=== PATIENT | male | born 2005 | race Caucasian/White ===

== ENCOUNTER 2023-08-26 12:07 | Outpatient (AMB) | payer OTHER, SELFPAY ==
--- NOTE | 2023-08-26 12:09 | A.OFFPC_ITS ---
Vital Signs 08/26/23 12:18 Height 5 ft 8 in Weight 176 lb BMI 26.8 BP 108/64 Blood Pressure Location Rt brachial Position Sitting Respiration 13 Pulse 76 Pulse Source Pulse Oximeter Pulse Oximetry (%) 98 Oxygen Delivery Method Room Air Intake Visit Reasons: New patient-requesting physical Intake Note: Patient is here as a new patient establishing care. [facility] [place], [place]. Patient would like to have a form filled out for school, given to [facility] in the office. Patient is accompanied by his mother- Megan. Patient would like to request a few referrals for detective automobile section for educational purposes, ENT for deviated septum, a engine head repairer for continuation of care, and estimator jewelry for lactose intolerance and reflux. Patient would like to discuss possible circumcision as the foreskin is bothersome. Construction Materials Tester Required: No Accompanied by: Self / Same As Patient Allergies No Known Allergies Allergy (Verified 08/26/23 12:26) Tobacco use date assessed: 08/26/23 Dental Screening Dental Screen Date: 08/26/23 Did you have a dental visit in the last 12 months?: Yes Did you have a dental problem in the last 6 months where you did not have access to dental care?: No Was dental information given to patient?: Patient has dentist HPI New patient-requesting physical HPI Details New patient Prior PCP:?Romeo Gonzalez in [facility] Last office visit/CPE: 1 year Acute issue(s): PMHx: Acne, Eczema, lactose intolerance, GERD, deviated nasal septum, Anxiety SurgHx: None FHx: Mom: Eczema, Anxiety. Dad: Stroke and seizure. SocHx: Nonsmoker. EtOH none. No drugs. 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 1. Little interest or pleasure in doing things: not at all 2. Feeling down, depressed, or hopeless: not at all 3. Trouble falling or staying asleep, or sleeping too much: several days 4. Feeling tired or having little energy: several days 5. Poor appetite or overeating: several days 6. Feeling bad about yourself - or that you are a failure or have let yourself or your family down: not at all 7. Trouble concentrating on things, such as reading the newspaper or watching television: not at all 8. Moving or speaking so slowly that other people could have noticed. Or the opposite - being so fidgety or restless that you have been moving around a lot more than usual: not at all 9. Thoughts that you would be better off or of hurting yourself in some way: not at all Total score: 3 Depression Screening Interpretation: Negative Depression Screening Done: Yes 92536 - PHQ-9 Billing: Yes Source: Developed by Drs. Ruben Padron, Jackie Urena, Aniket Kennedy and colleagues, with an educational ebony from [employer]. Thrive Questionnaire Date Thrive assessed: 08/26/23 I am a: Patient What is your living situation today?: I have a steady place to live Within the past 12 months, did the food you bought not last and you didn't have the money to get more?: Never true Within the past 12 months, did you worry whether your food would run out before you got money to buy more?: Never true Do you have trouble paying for medicines?: No Do you have trouble getting transportation to medical appointments?: No Do you have trouble paying your heating and electricity bill?: No Do you have trouble taking care of your child, family member or friend?: No Do you have trouble with day-to-day activities such as bathing, preparing meals, shopping, managing finances, etc.?: No Are you currently unemployed and looking for a job?: Yes Are you interested in more education?: Yes Please select the resources that you would like help with: Job search/training Currently or been in a relationship where the following occur: no concerns reported AUDIT C Alcohol Use Questionnaire (AUDIT-C) 1. How often do you have a drink containing alcohol?: Never 3. How often do you have six or more drinks on one occasion?: Never Total Score: 0 JEFFERY-7 AMB Questionnaire JEFFERY-7 Date JEFFERY - 7 assessed: 08/26/23 Feeling nervous, anxious, or on edge: 0 = Not at all Not being able to stop or control worryin = Not at all Worrying too much about different things: 0 = Not at all Trouble relaxin = Not at all Being so restless that it is hard to sit still: 0 = Not at all Becoming easily annoyed or irritable: 0 = Not at all Feeling afraid as if something awful might happen: 0 = Not at all Total JEFFERY-7 score (0-4 normal; 5-9 mild; 10-14 moderate; 15-21 severe): 0 Source: Developed by Drs. Ruben Padron, Jackie Urena, Aniket Kennedy and colleagues, with an educational ebony from [employer]. JEFFERY-7 Assessment Billing JEFFERY-7 Assessment Tool: JEFFERY-7 Assessment 21878 Review of Systems Const Denies chills, Denies fatigue, Denies fever(s), Denies headache(s) and Denies weakness ENT Denies dizziness and Denies headache(s) Card Denies chest pain, Denies lightheadedness, Denies dyspnea and Denies other (Palpitations) Resp Denies cough, Denies dyspnea, Denies wheezing and Denies other ( shortness of breath) Musc Denies numbness and Denies tingling Neuro Denies dizziness, Denies headache(s), Denies numbness, Denies tingling, Denies paresthesias and Denies weakness Psych Denies anxiety and Denies depression Endo Denies fatigue Aller/Immun Denies wheezing Physical exam (Primary Care) Vital Signs: Last Vital Signs Pulse 76 08/26/23 12:18 Resp 13 08/26/23 12:18 BP 108/64 08/26/23 12:18 Pulse Ox 98 08/26/23 12:18 Oxygen Delivery Method Room Air 08/26/23 12:18 BMI result Body Mass Index 26.8 Tobacco/Smoking Status: Tobacco use Status Tobacco use date assessed 08/26/23 08/26/23 12:32 Patient Tobacco Use Status Never used Tobacco 08/26/23 12:32 e-Cigarette/Vaping Use Never Used 08/26/23 12:32 PHQ-9: PHQ-9 Score PHQ-9: Total score 3 08/26/23 12:34 Depression Screening Interpretation: Negative Thrive Assessment: Date of Thrive Assessment Date Thrive assessed 08/26/23 08/26/23 12:34 Currently or been in a relationship where the following occur: no concerns reported Const General: no acute distress and well developed Nutritional Appearance: well nourished Orientation/consciousness: patient oriented x3 [facility] Head: Yes normocephalic and Yes atraumatic Eyes General: appearance normal, both eyes and all related structures Pupils: Equal, round and reactive pupils present EOM: EOMs intact bilaterally Resp Effort & Inspection: normal respiratory effort Auscultation: clear to auscultation bilaterally Cardio Rate: regular rate Rhythm: regular rhythm Heart sounds: S1 normal heart sound present, S2 normal heart sound present, no gallops, no murmurs and no rubs Neuro General: patient oriented x3 and gait normal Cranial nerves: Yes Equal, round and reactive pupils present Psych Affect: normal affect Assessment and Plan Assessment & Plan (1) Acne: Code(s): L70.9 - Acne, unspecified Plan: Referred?at?patient?request?to?Dermatology (2) Balanitis: Code(s): N48.1 - Balanitis Plan: Trial?clotrimazole Referred?to?Urology (3) Overweight (BMI 25.0-29.9): Code(s): E66.3 - Overweight Plan: Patient?is?trying?to?get?into?the?air?force?in?exceed?air?force?recommended?weig ht?limit Requests?referral?to?nutrition-referral?made (4) GERD (gastroesophageal reflux disease): Code(s): K21.9 - Gastro-esophageal reflux disease without esophagitis Plan: Trial?omeprazole Referred?to?Gastroenterology (5) Deviated nasal septum: Code(s): J34.2 - Deviated nasal septum Plan: Referred?to?ENT (6) Eczema: Code(s): L30.9 - Dermatitis, unspecified Plan: Use?moisturizing?creams?throughout?the?day?and?can?use?hydrocortisone?b.i.d.?whe n?flare?ups?occur (7) Lactose intolerance: Code(s): E73.9 - Lactose intolerance, unspecified Plan: Trial?lactatase Orders: Orders Comprehensive [place]. Panel Fast Today Z00.00 - Encounter for general adult medical examination without abnormal findings TSH reflex Free T4 Today Z00.00 - Encounter for general adult medical examination without abnormal findings Complete Blood Count Auto Diff Today Z00.00 - Encounter for general adult medical examination without abnormal findings Lipid Panel Today Z00.00 - Encounter for general adult medical examination without abnormal findings Microalbumin, Random (w Creat) Today I10 - Essential (primary) hypertension UA and rflx microscopic Today Z00.00 - Encounter for general adult medical examination without abnormal findings Vitamin B12 and Folate Today E53.8 - Deficiency of other specified B group vitamins Referrals Dermatology Referral L70.9 - Acne, unspecified Urology Referral T81.9XXA - Unspecified complication of procedure, initial encounter Ear/Nose/Throat Referral J34.2 - Deviated nasal septum Gastroenterology Referral E73.9 - Lactose intolerance, unspecified, K21.9 - Gastro-esophageal reflux disease without esophagitis Crew Team Member Nutrition Referral E66.3 - Overweight Medications: New lactase administer with meals and/or snacks 4,500 units PO QID 120 tabs 2RF 30 days omeprazole 20 mg PO DAILY 30 caps 2RF 30 days clotrimazole 1% 1 appl topical BID 45 grams 0RF 2 weeks Coding Level of Care Code New Pt Level 4 (91933) Diagnoses Acne L70.9 Balanitis N48.1 Overweight (BMI 25.0-29.9) E66.3 GERD (gastroesophageal reflux disease) K21.9 Deviated nasal septum J34.2 Eczema L30.9 Lactose intolerance E73.9 Additional Codes JEFFERY-7 Assessment Billing - JEFFERY-7 Assessment Tool: JEFFERY-7 Assessment 64079 ([id number])
[2023-08-26 12:18] VITALS: BP 108/64; PULSE 76; RESP 13; O2SAT 98; BMI 26.8
== END 2023-08-26 13:03 | disposition home or self-care (01) ==
PROVIDERS: PCP Family Medicine; Visit Provider Family Medicine
DX: L70.9 Acne, unspecified (principal); N48.1 Balanitis; E66.3 Overweight; K21.9 Gastro-esophageal reflux disease without esophagitis; J34.2 Deviated nasal septum; L30.9 Dermatitis, unspecified; E73.9 Lactose intolerance, unspecified
CPT/HCPCS: 99204

== ENCOUNTER 2023-09-08 14:37 | Outpatient (AMB) | payer OTHER, SELFPAY ==
[2023-09-08 14:41] VITALS: BMI 27.0
--- NOTE | 2023-09-08 14:41 | A.OFFVIS_ITS ---
Intake VS Expanded 09/08/23 14:41 09/20/23 15:07 Height 5 ft 8 in 5 ft 8 in Weight 177 lb 14.609 oz 175 lb BMI 27.0 26.6 Intake Visit Reasons: Overweight/LVM Allergies No Known Allergies Allergy (Verified 08/26/23 12:26) HPI Nutrition Presentation Details Pt presents for MNT for overweight. Pt was referred by Asa Monaco MD from [facility] Pt reports having hx of lactose intolerance and high cholesterol. Pt reports he has been working on weight loss , reports having lost 30 lbs in 6 months reaching 165 lbs however in the past couple of months he has noticed gradually increasing weight Typical meal : shake with oats and fruit or oatmeal /fruit/almond milk snack yogurt/bread sandwich lettuce/tomatoes, water meals: rice/pasta/poultry/veg food frequency fruit/day: one/day fish: rarely milk: lactose free and milk ( dessert) vegetables: couple of times a week physical activity: sedentary (was participating in physical activity in the past for > 30 min/day ETOH; denies MJX-Xfqvspo-El.Jeor Equation Height 5 ft 8 in Weight 175 lb Resting Metabolic Rate 1784.01 Calculated Activity Level Mild Activity Calories Needed to Maintain Weight 2453.01 Diagnosis Nutrition problem #1 excessive energy intake As related to (etiology) #1 physical inactivity Most Recent Diabetes Results: No Data to Display [facility] Social History (Updated 08/26/23 @ 12:32 by Aniya Arroyo [facility]) Household Members: Family Housing: House Patient Tobacco Use Status: Never used Tobacco e-Cigarette/Vaping Use: Never Used service: No Current occupational status: student Current occupation: [employer] for [employer], [employer], [employer] Current occupational exposures/hazards: No Cognitive needs: No Hearing needs: No Vision needs: No Assessment & Plan Assessment & Plan (1) Overweight: Code(s): E66.3 - Overweight Plan: Wt: 79Kg ( 09/2023 ) Est kcal needs as per MSJ: 8034-7900 (40% carb, 30% protein/fat) Est fluid needs as per 30 ml/d: 2400 Est prot per day as per 1 g/kg bw: 79 Recommend fiber intake : 8-10 g per day and gradually increase to 25-28 g per day for women and 35-38 g for men or as tolerated Recommend sodium intake per day : less than 2000 mg Educated patient on: ( R = reviewed V = verbalizes understanding N/R = needs review N/A = not applicable * Food sources of carbohydrate, adequate serving sizes and its role in various health conditions: R * Differences between complex carbohydrates a simple carbohydrates, role of fiber in diet: R * Lean protein sources of foods: R * Differences between types of fats and role in diet (mono on saturated fat fatty acids, saturated fatty acids, trans fats): N/R * Food sources of sodium in salt and healthy modifications for heart health in kidney health: N/R * Vitamins and minerals: N/R * Healthy plate method concept: R * Physical activity: Benefits a precaution: R V * Mindful eating: R V N/R Plan 2400 Patient Instructions: Have 3 balanced meals per day following healthy plate method at dinner Reduce total carb at meal to less than 80 g Drink water with meals and snacks Resume physical activity goal 30 min at least 3 times a week see meal ideas as reference Coding Level of Care Code Nutr Indiv Intake (26943) Diagnoses Overweight E66.3 Time Spent (min) 30
[2023-09-20 15:07] VITALS: BMI 26.6
== END 2023-09-08 15:20 | disposition home or self-care (01) ==
PROVIDERS: PCP Family Medicine; Visit Provider Dietitian, Registered
DX: E66.3 Overweight (principal)

== ENCOUNTER → 2023-09-08 14:37 | Outpatient (BNVA) | payer OTHER, SELFPAY | PROVIDERS: PCP Family Medicine; Visit Provider Dietitian, Registered | DX: E66.3 Overweight (principal); Z71.3 Dietary counseling and surveillance | CPT/HCPCS: 97802 ==

== ENCOUNTER 2023-10-28 11:07 | Outpatient (AMB) | payer OTHER, SELFPAY ==
--- NOTE | 2023-10-28 11:08 | A.OFFVIS_ITS ---
Intake Intake Visit Reasons: Consult for circumcision Intake Note: NEW Patient presents today for a Circumcision Consult: YRN Meds- None Allergies to Antibiotic- No Known Allergies Blood Thinner- None Vaccinator Required: No Accompanied by: Self / Same As Patient Allergies No Known Allergies Allergy (Verified 10/28/23 11:10) HPI HPI Comments History of Present Illness Details Reinaldo is here for consultation regarding circumcision. He states that he is able to retract the foreskin without any difficulty. He denies prior infections however he has been treated for balanitis by his PCP. Denies any urinary issues. Exam: Foreskin easily retractable glans no lesions noted 10/28/2023--Plan: I discussed circumcision and answered his questions. Patient wants to hold on circumcision for now. At the end of the visit the patient stated he also has had some testicular discomfort. I will evaluate with a scrotal ultrasound [facility] Surgical History No pertinent past surgical history Family History Father No problems noted. Mother No problems noted. 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, [employer] Current occupational exposures/hazards: No Cognitive needs: No Hearing needs: No Vision needs: No Review of Systems Const All systems reviewed & are unremarkable except as noted in HPI and below Reports no additional complaints Eyes Reports no additional complaints ENT Reports no additional complaints Card Denies dyspnea Resp Denies cough and Denies dyspnea GI Reports no additional complaints Musc Reports no additional complaints Skin/Breast Denies rash and Denies unusual bruising Neuro Reports no additional complaints Psych Reports no additional complaints Endo Reports no additional complaints Adam/Lymph Reports no additional complaints Aller/Immun Reports no additional complaints Physical Exam Const General: healthy appearing, no acute distress and well developed Orientation/consciousness: patient oriented x3 HEENT Head: Yes normocephalic and Yes atraumatic Eyes Conjunctivae: conjunctivae normal Neck Neck: Yes normal visual inspection Chest Chest palpation & inspection: normal inspection of the chest Resp Effort & Inspection: normal respiratory effort Cardio Rate: regular rate GI Inspection: Yes normal to inspection Palpation (GI): Soft to palpation Other: Foreskin easily retractable glans no lesions noted Penis: normal penis and uncircumcised Skin General skin exam: no rashes or lesions noted Neuro General: patient oriented x3 Extrem General: No pedal edema Psych Appearance: grossly normal Affect: normal affect Assessment & Plan Assessment & Plan (1) Balanitis: Code(s): N48.1 - Balanitis (2) Redundant foreskin: Code(s): N47.8 - Other disorders of prepuce (3) Testicular pain: Code(s): N50.819 - Testicular pain, unspecified Plan Ultrasound scrotum Follow-up in 10 weeks Orders: Orders AMB Urinalysis Automated 10/28/23 Z13.9 - Encounter for screening, unspecified Coding Level of Care Code New Pt Level 4 (22388) Diagnoses Balanitis N48.1 Redundant foreskin N47.8 Testicular pain N50.819
== END 2023-10-28 11:58 | disposition home or self-care (01) ==
PROVIDERS: PCP Family Medicine; Visit Provider Urology
DX: N48.1 Balanitis (principal); N47.8 Other disorders of prepuce; N50.819 Testicular pain, unspecified
CPT/HCPCS: 99204

== ENCOUNTER → 2023-10-28 11:07 | Outpatient (BNVA) | payer OTHER, SELFPAY | PROVIDERS: PCP Family Medicine; Visit Provider Urology | DX: N48.1 Balanitis (principal); N47.8 Other disorders of prepuce; N50.819 Testicular pain, unspecified | CPT/HCPCS: 99202 ==

== ENCOUNTER 2023-10-28 12:41 | Outpatient (REF) | payer OTHER, SELFPAY ==
[2023-10-28 14:24] LABS: MANUAL DIFF FLAG NO
[2023-10-28 14:38] LABS: Basophils Absolute Auto 0.1 X10*3/uL (0.0-0.2); Basophils Percent Auto 1.1 % (0-2); Eosinophils Absolute Auto 0.2 X10*3/uL (0.0-0.4); Eosinophils Percent Auto 3.2 % (0-4); Hematocrit 43.3 % (42.0-52.0); Hemoglobin 14.9 g/dl (14.0-18.0); Imm Gran Abs Auto 0.01 X10*3/uL (0.00-0.03); Imm Gran Pct Auto 0.2 % (0.0-0.4); Lymphocytes Absolute Auto 1.7 X10*3/uL (1.2-4.9); Lymphocytes Percent Auto 32.3 % (20-40); Mean Corpuscular HGB Conc 34.4 g/dl (31.0-36.0); Mean Corpuscular Hemoglobin 30.5 pg (27.0-33.0); Mean Corpuscular Volume 88.5 fL (80.0-98.0); Monocytes Absolute Auto 0.4 X10*3/uL (0.1-1.2); Monocytes Percent Auto 7.5 % (2-11); Neutrophils Percent Auto 55.7 % (45-73); Platelet Count 278 X10*3/uL (160-400); Red Blood Count 4.89 X10*6/uL (4.60-5.80); Red Cell Distribution Width 12.3 % (11.0-16.0); White Blood Count 5.4 X10*3/uL (4.8-10.8)
[2023-10-28 15:04] LABS: Alanine Aminotransferase 13 U/L (0-40); Albumin Level 4.6 g/dL (3.5-5.0); Alkaline Phosphatase 78 U/L (39-117); Anion Gap 11 (12-20); Aspartate Amino Transferase 21 U/L (5-37); Bilirubin Total 1.7 mg/dL (0.0-1.0); Blood Urea Nitrogen 11 mg/dL (9-16); Calcium 9.5 mg/dL (8.4-10.2); Carbon Dioxide 28 mmol/L (22-29); Chloride 105 mmol/L (96-108); Cholesterol 130 mg/dL (<200); Estimated Glomerular Filt Rate > 60; Glucose Fasting 84 mg/dL (60-99); HDL Cholesterol 48 mg/dL (>40); LDL Cholesterol Calculated 73 mg/dL (<100); Potassium 4.6 mmol/L (3.3-5.1); Sodium 139 mmol/L (135-145); Total Protein 7.1 g/dL (6.5-8.0); Triglycerides 49 mg/dL (<150)
[2023-10-28 15:09] LABS: TSH reflex Free T4 1.17 uIU/mL (0.32-4.0)
[2023-10-28 15:27] LABS: Folate 14.9 ng/mL (> or = 4.0); Vitamin B12 742 pg/mL (200-900)
== END 2023-10-28 12:42 | disposition home or self-care (01) ==
LOC: HO.WFDLDS 12:41
PROVIDERS: Visit Provider Family Medicine
DX: Z00.00 Encounter for general adult medical examination without abnormal findings (principal); E53.8 Deficiency of other specified B group vitamins; Z13.220 Encounter for screening for lipoid disorders; Z13.29 Encounter for screening for other suspected endocrine disorder
CPT/HCPCS: 36415; 80053; 80061; 82607; 82746; 84443; 85025

== ENCOUNTER 2024-06-07 15:46 | Outpatient (AMB) | payer OTHER, SELFPAY ==
--- NOTE | 2024-06-07 15:54 | A.OFFPC_ITS ---
Vital Signs 06/07/24 15:58 Height 5 ft 8 in Weight 185 lb 6 oz BMI 28.2 BP 100/60 Blood Pressure Location Lt brachial Position Sitting Respiration 14 Pulse 73 Pulse Source Pulse Oximeter Temp 98.8 F Temp Source Oral Pulse Oximetry (%) 98 Oxygen Delivery Method Room Air Intake Visit Reasons: feeling depressed Intake Note: feeling depressed Allergies No Known Allergies Allergy (Verified 06/07/24 15:54) Medication List - Last Reconciled 06/07/24 by Keith Monaco MD citalopram 20 mg PO DAILY 90 days clotrimazole 1% 1 appl topical BID 2 weeks fluticasone propionate 50 mcg/actuation (Flonase Allergy Relief) 2 sprays intranasal DAILY lactase 4,500 units PO QID 30 days omeprazole 20 mg PO DAILY 30 days tretinoin 0.025% 1 appl topical BEDTIME Tobacco use date assessed: 08/26/23 Dental Screening Dental Screen Date: 08/26/23 HPI feeling depressed HPI Details 18 y/o male presents today with complain ts of depression. PHQ-9 9, JEFFERY-7 6 today. Notes depression started about a couple months ago. He states he is seeing a therapist. He has not been on any meds for depression. Denies any SI/HI. Has complaints of nasal congestion. Notes hx of deviated septum. [facility] Surgical History No pertinent past surgical history Family History Father No problems noted. Mother No problems noted. 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 1. Little interest or pleasure in doing things: nearly every day 2. Feeling down, depressed, or hopeless: more than half the days 3. Trouble falling or staying asleep, or sleeping too much: several days 4. Feeling tired or having little energy: not at all 5. Poor appetite or overeating: several days 6. Feeling bad about yourself - or that you are a failure or have let yourself or your family down: several days 7. Trouble concentrating on things, such as reading the newspaper or watching television: not at all 8. Moving or speaking so slowly that other people could have noticed. Or the opposite - being so fidgety or restless that you have been moving around a lot more than usual: not at all 9. Thoughts that you would be better off or of hurting yourself in some way: not at all Total score: 8 Depression Screening Interpretation: Positive Depression Screening Done: Yes 30837 - PHQ-9 Billing: Yes Source: Developed by Drs. Ruben Padron, Jackie Urena, Aniket Kennedy and colleagues, with an educational ebony from [employer]. Thrive Questionnaire Date Thrive assessed: 08/26/23 JEFFERY-7 AMB Questionnaire JEFFERY-7 Date JEFFERY - 7 assessed: 06/07/24 Feeling nervous, anxious, or on edge: 1 = Several days Not being able to stop or control worryin = Not at all Worrying too much about different things: 1 = Several days Trouble relaxin = Several days Being so restless that it is hard to sit still: 0 = Not at all Becoming easily annoyed or irritable: 1 = Several days Feeling afraid as if something awful might happen: 2 = More than half the days Total JEFFERY-7 score (0-4 normal; 5-9 mild; 10-14 moderate; 15-21 severe): 6 Source: Developed by Drs. Ruben Padron, Jackie Urena, Aniket Kennedy and colleagues, with an educational ebony from [employer]. JEFFERY-7 Assessment Billing JEFFERY-7 Assessment Tool: JEFFERY-7 Assessment 26251 Review of Systems Const Denies chills, Denies fatigue, Denies fever(s), Denies headache(s) and Denies weakness ENT Denies dizziness and Denies headache(s) Card Denies dyspnea Resp Denies cough, Denies dyspnea, Denies wheezing and Denies other (shortness of breath) Musc Denies numbness and Denies tingling Neuro Denies dizziness, Denies headache(s), Denies numbness, Denies tingling and Denies weakness Psych Reports depression Endo Denies fatigue Aller/Immun Denies wheezing Physical exam (Primary Care) Vital Signs: Last Vital Signs Temp 98.8 F 06/07/24 15:58 Pulse 73 06/07/24 15:58 Resp 14 06/07/24 15:58 BP 100/60 06/07/24 15:58 Pulse Ox 98 06/07/24 15:58 Oxygen Delivery Method Room Air 06/07/24 15:58 BMI result Body Mass Index 28.2 Tobacco/Smoking Status: Tobacco use Status Tobacco use date assessed 08/26/23 06/07/24 16:01 Patient Tobacco Use Status Never used Tobacco 06/07/24 16:01 e-Cigarette/Vaping Use Never Used 06/07/24 16:01 PHQ-9: PHQ-9 Score PHQ-9: Total score 9 06/07/24 16:02 Depression Screening Interpretation: Positive Thrive Assessment: Date of Thrive Assessment Date Thrive assessed 08/26/23 06/07/24 16:01 Const General: well developed; No acute distress Nutritional Appearance: well nourished Orientation/consciousness: patient oriented x3 HENMT Head: Yes normocephalic and Yes atraumatic Eyes General: appearance normal, both eyes and all related structures Pupils: Equal, round and reactive pupils present EOM: EOMs intact bilaterally Resp Effort & Inspection: normal respiratory effort Neuro General: patient oriented x3 and gait normal Cranial nerves: Yes Equal, round and reactive pupils present Psych Affect: normal affect Coding Level of Care Code Est Pt Level 3 (68687) Diagnoses Depression F32.A Nasal congestion R09.81 Deviated nasal septum J34.2 Additional Codes JEFFERY-7 Assessment Billing - JEFFERY-7 Assessment Tool: JEFFERY-7 Assessment 97852 ([id number]) Assessment & Plan Assessment & Plan (1) Depression: Code(s): F32.A - Depression, unspecified Category: Medical Plan: Start?citalopram?20?mg?daily Continue?to?follow?with?therapist Patient?denies?SI/HI. ? (2) Nasal congestion: Code(s): R09.81 - Nasal congestion Category: Medical Plan: Nasal?congestion?and?mildly?deviated?nasal?septum. Referred?to?ENT?at?patient?request Significant?secretions.??He?can?try?some?Benadryl?at?night (3) Deviated nasal septum: Code(s): J34.2 - Deviated nasal septum Category: Medical Plan: As above Orders: Referrals Ear/Nose/Throat Referral J34.2 - Deviated nasal septum, R09.81 - Nasal congestion Medications: New citalopram 20 mg PO DAILY 90 days 90 tabs 1RF
[2024-06-07 15:58] VITALS: BP 100/60; PULSE 73; RESP 14; TEMP 37.1; O2SAT 98; BMI 28.2
== END 2024-06-07 16:25 | disposition home or self-care (01) ==
PROVIDERS: PCP Family Medicine; Visit Provider Family Medicine
DX: F32.A Depression, unspecified (principal); R09.81 Nasal congestion; J34.2 Deviated nasal septum

== ENCOUNTER → 2024-06-07 15:46 | Outpatient (BNVA) | payer OTHER, SELFPAY | PROVIDERS: PCP Family Medicine; Visit Provider Family Medicine | DX: F32.A Depression, unspecified (principal) | CPT/HCPCS: 96127; 99212 ==

== ENCOUNTER 2024-11-15 08:11 | Outpatient (AMB) | payer OTHER, SELFPAY ==
--- NOTE | 2024-11-15 08:25 | MHC.OFFWIV ---
Intake Vital Signs 11/15/24 08:28 Height 5 ft 8 in Weight 192 lb 2 oz BMI 29.2 BP 126/88 Blood Pressure Location Rt brachial Position Sitting Respiration 16 Pulse 68 Pulse Source Pulse Oximeter Temp 98.1 F Temp Source Oral Pulse Oximetry (%) 99 Oxygen Delivery Method Room Air Intake Visit Reasons: Sore throat Intake Note: Sore throat, upset stomach, and nasal congestion. Sore throat started 2 years ago. Stomach ache started today. Patient believes he may have gotten a call from ENT. Gave number for pt to call and schedule appt. Patient Tobacco Use Status: Never used Tobacco Allergies No Known Allergies Allergy (Verified 11/15/24 08:28) Do you need a note to return to daycare/school/sports/work: No HPI HPI Comments History of Present Illness Details 19-year-old male with GERD, deviated nasal septum, lactose intolerance and depression presents for evaluation of longstanding congestion and intermittent sore throat. He endorses symptoms for the past 10 years. Endorses daily nasal congestion and sneezing associated with mucus in his throat. Throat become sore from trying to cough and clear it. Throat pain is [id number]. Sometimes he brings up the congestion which helps. In the past tried Flonase, but he does not remember the effect, and it has been a long time since he tried it. Was referred to ENT for a deviated nasal septum and congestion last fall, but the appointment was not scheduled. History of eczema. Reports he has had allergy testing in [place] 3-5 years ago. Does not recall being told results. He has not tried home remedies or [id number]-[id number] medications. He has a dog and rapid at home. Patient says his stomach did feel little upset this morning which she attributes to something he ate. No vomiting, abdominal pain, skin rashes, diarrhea, fevers or chills. Diastolic blood pressure is mildly elevated today. He does not have a family history of hypertension. Did not have caffeine this morning. Denies feeling anxious. ROS: Constitutional: No unexplained weight loss, fever, chills, fatigue or night sweats. Eyes: No vision changes, blurry vision, double vision, eye pain, eye redness, eye discharge. ENT: No hearing loss, ear pain, sinus pain, purulent nasal drainage. See HPI. No dysphagia. No hoarseness. Respiratory: No shortness of breath, cough or sputum production. Cardiovascular: No chest pain Gastrointestinal: See HPI Neurologic: No headache, dizziness, syncope, unilateral weakness, ataxia, numbness or tingling in the extremities. Physical exam: Constitutional: Alert, in no distress. Eyes: Pupils are equal, round and reactive to light. Extraocular muscles intact. Ear, Nose and Throat: Canals clear. TMs normal. Nasal mucosa erythematous. Inferior turbinates 2+. Nasal septum deviated to the right. No nasal discharge. No oral lesions. Sinuses nontender. Throat is mildly cobblestone. Neck: Supple, Full range of motion. No lymphadenopathy. No palpable masses. Respiratory: Clear to auscultation. Cardiovascular: S1 S2 regular. No murmurs. Gastrointestinal: Abdomen soft, non-tender, non-distended. Normal bowel sounds. No palpable masses. Neurologic: No focal neurological deficits. Extremities: Warm and well perfused. No clubbing, cyanosis or edema. Psychiatric: Normal mood and affect [facility] Medical History (Updated 11/15/24 @ 09:04 by ENOC Gutiérrez) Sore throat Elevated blood pressure reading Chronic rhinitis Surgical History No pertinent past surgical history Family History Father No problems noted. Mother No problems noted. 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 Current occupational exposures/hazards: No Cognitive needs: No Hearing needs: No Vision needs: No Physical Exam Vital Signs: Last Vital Signs Temp 98.1 F 11/15/24 08:28 Pulse 68 11/15/24 08:28 Resp 16 11/15/24 08:28 BP 126/88 11/15/24 08:28 Pulse Ox 99 11/15/24 08:28 Oxygen Delivery Method Room Air 11/15/24 08:28 BMI result Body Mass Index 29.2 Results AMB Rapid Strep AMB Rapid Strep Negative Last Edit by Annel Ott CMA on 11/15/24 08:46 Assessment & Plan Assessment & Plan (1) Chronic rhinitis: Code(s): J31.0 - Chronic rhinitis (2) Deviated nasal septum: Code(s): J34.2 - Deviated nasal septum (3) Elevated blood pressure reading: Code(s): R03.0 - Elevated blood-pressure reading, without diagnosis of hypertension (4) Sore throat: Code(s): J02.9 - Acute pharyngitis, unspecified Plan I suspect the patient has underlying environmental allergens causing chronic rhinitis. Sore throat is secondary to irritation from postnasal drip and coughing. Rapid strep is negative. Trial of Xyzal and Nasacort. Proper administration of medications and side effects reviewed. Advised patient it may be a couple of weeks before he notices a difference on the medications. Recommended cool mist humidifier at night. He was given the contact number to schedule the ENT appointment. I also referred him to Allergy and immunology. Diastolic blood pressure was mildly elevated even upon recheck. Recommended avoidance of caffeine and following a low-sodium diet. Return in 4-6 weeks for blood pressure and medication check. Orders: Orders AMB Rapid Strep Screen Today J02.9 - Acute pharyngitis, unspecified Referrals Allergy & Immunology Referral J31.0 - Chronic rhinitis Medications: New triamcinolone acetonide (Nasacort) administer into each nostril 2 sprays intranasal DAILY 16.9 mL 3RF levocetirizine (Xyzal) 5 mg PO BEDTIME 90 tabs 0RF Discontinued omeprazole Discontinued Reason: Doctor's Order 20 mg PO DAILY 30 days 30 caps 2RF clotrimazole 1% Discontinued Reason: Doctor's Order 1 appl topical BID 2 weeks 45 grams 0RF Coding Level of Care Code Est Pt Level 4 (74788) Diagnoses Chronic rhinitis J31.0 Deviated nasal septum J34.2 Elevated blood pressure reading R03.0 Sore throat J02.9
[2024-11-15 08:28] VITALS: BP 126/88; PULSE 68; RESP 16; TEMP 36.7; O2SAT 99; BMI 29.2
--- OUTSIDE RECORDS SUMMARY | 2024-11-15 08:32 | XMS_ITS | Clinical Summary ---
Author Organization [facility] Address [address] [facility] [address] [facility] ([place], [place]) [address] [place] [address] Phone Care Team Providers Care Tree Killer Name Role Phone Shandra Gibbs MD ([place]) Primary Care Provider [phone] Gwen OWENS, Floresita Sanford Unavailable + [phone] Reason for Visit and Chief Complaint visit for: comprehensive medical evaluation :New Patient - The Chief Complaint is: allergies Plan of Treatment - Discussion of therapy options discussed with patient - Last Documented On 09/15/2022 4:42PM ; [facility] - Continue current medication - Last Documented On 09/15/2022 4:42PM ; [facility] total time spent with the patient 35 min 30 min face to face, 5 min non-face to face - Last Documented On 09/15/2022 4:42PM ; [facility] Pending Tests Order Diagnosis Results Due Ordering P rovider Return Follow Up - Month(s) 2 months Postnasal drip 09/15/22 Floresita Hidalgo MD Last Documented On 3 4:39PM ; [facility] Return Follow Up - Month(s) 2 months Vasomotor rhinitis 09/15/22 Floresita Bishop MD Last Documented On 3 4:39PM ; [facility] Return Follow Up - Month(s) 2 months Chronic rhinitis 09/15/22 Floresita Rice MD Last Documented On 3 4:39PM ; [facility] Plan:Test/Treatment1 - Nasal Care Nasal rinse/Nasal lavage Chronic rhinitis 09/15/22 Floresita Hidalgo MD Last Documented On 3 4:39PM ; [facility] STATUS - New Problem No additional workup planned Postnasal drip 09/15/22 Floresita Hidalgo MD Last Documented On 3 4:39PM ; [facility] STATUS - New Problem No additional workup planned Vasomotor rhinitis 09/15/22 Floresita Hidalgo MD Last Documented On 3 4:39PM ; [facility] STATUS - New Problem No additional workup planned Chronic rhinitis 09/15/22 Floresita Hidalgo MD Last Documented On 3 4:39PM ; [facility] Instructions to patient Instructions for patient Last Documented On 3 2:34PM ; [facility] Instructions for patient no evidence of allergies at present ~Recommended to do sinus rinse every day, mainly after work. ~Use Fluticasone nasal spray q PM ~Will consider further evaluation for possible sinus infections or immunodeficiency if symptoms persist or get worse Last Documented On 3 4:37PM ; [facility] Avoid allergens Last Documented On 3 2:34PM ; [facility] Education and Decision Aids were provided during visit for: Patient education using writ ten material Last Documented On 3 2:34PM ; [facility] Patient education using lect ure (Verbal) Last Documented On 3 2:34PM ; [facility] Patient education about medi cation Last Documented On 3 2:34PM ; [facility] Patient education about the proper use of medications Last Documented On 3 2:34PM ; [facility] Patient education about heidy rgies Last Documented On 3 2:34PM ; [facility] Inquiry and counseling about medication administration and compliance Last Documented On 3 4:37PM ; [facility] Education/counseling conduct ed by physician Last Documented On 3 2:34PM ; [facility] Patient education about skin care Last Documented On 3 2:34PM ; [facility] Assessments Includes: Assessments from this encounter Findings - Postnasal drip - Last Documented On 09/15/2022 4:42PM ; [facility] - Vasomotor rhinitis - Last Documented On 09/15/2022 4:42PM ; [facility] - Chronic rhinitis - Last Documented On 09/15/2022 4:42PM ; [facility] Instructions Includes: Instructions from this encounter Instructions to patient Instructions for patient Last Documented On 3 2:34PM ; [facility] Instructions for patient no evidence of allergies at present ~Recommended to do sinus rinse every day, mainly after work. ~Use Fluticasone nasal spray q PM ~Will consider further evaluation for possible sinus infections or immunodeficiency if symptoms persist or get worse Last Documented On 3 4:37PM ; [facility] Avoid allergens Last Documented On 3 2:34PM ; [facility] Education and Decision Aids were provided during visit for: Patient education using writ ten material Last Documented On 3 2:34PM ; [facility] Patient education using lect ure (Verbal) Last Documented On 3 2:34PM ; [facility] Patient education about medi cation Last Documented On 3 2:34PM ; [facility] Patient education about the proper use of medications Last Documented On 3 2:34PM ; [facility] Patient education about heidy rgies Last Documented On 3 2:34PM ; [facility] Inquiry and counseling about medication administration and compliance Last Documented On 3 4:37PM ; [facility] Education/counseling conduct ed by physician Last Documented On 3 2:34PM ; [facility] Patient education about skin care Last Documented On 3 2:34PM ; [facility] Medical Equipment - Implanted Devices Includes: Current Devices No Medical Equipment Recorded Medications Includes: Medications discussed during this encounter and other current Medications New / Renewed during this visit Floresita Hidalgo MD on 09/15/2022 Fluticasone Propionate 50 MCG/ACT Nasal Suspension Provider: Floresita busch MD 30 day supply: 15.8 mL, 3 refills Diagnosis: Chronic rhinitis once a day 2 sprays to each nostril Pharmacy: [email or web address] [id number] [id number], [phone] - Last Documented On 3 4:44PM By Floresita Hidalgo MD ; [facility] Current Medications (continue as prescribed) Maryana Allergy 60 MG Oral Tablet 09/15/2022 Provide r: Diagnosis: Last Documented On 3 2:22PM By Cora Garza ; [facility] Medications Administered Includes: Administered Medications from this encounter No Administered Medications Recorded Vital Signs Includes: Vital Signs from this encounter Vital Name 09/15/2022 02:23P Blood Pressure Sitting L 118/70 BP Cuff Size Regular Pulse Rate-Sitting (bpm) 69 Pulse Rhythm Regular Respiration Rate (breaths/min) 18 Temp-Tympanic (F) 98.7 Height (in) 67 Weight (lb) 170 Body Mass Index 26.6 BMI Percentile (percentile) 86.5 Body Surface Area 1.9 Oxygen Saturation (%) 98 Last Documented: On 09/15/2022 2:23PM ; [facility] Results Includes: Results discussed during this encounter No Results Recorded For Specified Dates History of Present Illness Includes: History of Present Illness from this encounter HPI Reinaldo Ventura is an 16 year old male. Reinaldo is here [facility] for initial eavluation. Patient has a long time history of nasal congestion, sniffling, sneezing inside and outside. Patient tried maryana with relief of symptoms. Uses a nasal spray as needed. Patietn denies eye symptoms. Patient complains of PND. Patient has eczema since he was a baby. Uses Cerave sometimes. Denies cough, wheezing or shortness of breath . Patient had COVID in 2021. - Problem list reviewed - Reliability of source of patient information was good - Patient accompanied by the mother - No headache - No facial pain - No sinus pressure - No neck symptoms - No swollen glands in the neck - No swollen eyelids - No itching of the eyes - No discharge from the eyes - No red eyes - Nasal discharge - Postnasal drip - Nasal passage blockage (stuffiness) - Sneezing - Ears do not itch - Ears do not feel clogged - The ears do not feel pressured - No popping noise in the ears - No tinnitus - No snoring - No nasal itching - No hoarseness - No sore throat - No itchy throat - No choking - Not swollen throat - No swollen tongue - No dyspnea - Not expressed as feeling short of breath - No cough - No wheezing - Heartburn - Regurgitation - Nausea without vomiting - No abdominal pain - No diarrhea - No taste disturbances - No pruritus - Allergic/immunologic symptoms - No diagnosis of angioedema - Eczema - No urticaria Social History Description Last Updated born and raised in [place], moved to [facility] in [address]/15/2022 Last Documented On 3 4:42PM ; [facility] Education history 09/15/2022 Last Documented On 3 4:42PM ; [facility] Occupation [employer], 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 Last Documented On 3 4:42PM ; [facility] Work history 09/15/2022 Last Documented On 3 4:42PM ; [facility] No difficulty understanding spoken Engli sh 09/15/2022 Last Documented On 3 4:42PM ; [facility] No secondhand cigarette smoke exposure 0 09/15/2022 Last Documented On 3 4:42PM ; [facility] Seeing a family doctor regularly 023 Last Documented On 3 4:42PM ; [facility] Smoking status : Never smoker 09/15/2022 Last Documented On 3 4:42PM ; [facility] Air-conditioning filters are changed mon thly 09/15/2022 Last Documented On 3 4:42PM ; [facility] Carpeting in the following rooms upstair s 09/15/2022 Last Documented On 3 4:42PM ; [facility] Contact with dogs 09/15/2022 Last Documented On 3 4:42PM ; [facility] Contact with pets or other animals 09/15 Last Documented On 3 4:42PM ; [facility] Contact with rabbits 09/15/2022 Last Documented On 3 4:42PM ; [facility] Does not sleep with pets 09/15/2022 Last Documented On 3 4:42PM ; [facility] Housing has central cooling 09/15/2022 Last Documented On 3 4:42PM ; [facility] Housing has windows closed 09/15/2022 Last Documented On 3 4:42PM ; [facility] Lives in private residence 09/15/2022 Last Documented On 3 4:42PM ; [facility] Mattress is not encased 09/15/2022 Last Documented On 3 4:42PM ; [facility] No exposure to environmental tobacco smo ke 09/15/2022 Last Documented On 3 4:42PM ; [facility] No exposure to molds 09/15/2022 Last Documented On 3 4:42PM ; [facility] Patient does not sleep with stuffed anim als 09/15/2022 Last Documented On 3 4:42PM ; [facility] Patient is not exposed to clutter that c ollects dust in the residence 09/15/2022 Last Documented On 3 4:42PM ; [facility] Pets in household 09/15/2022 Last Documented On 3 4:42PM ; [facility] Pillows are not encased 09/15/2022 Last Documented On 3 4:42PM ; [facility] Presence of carpet in residence 09/15/19 Last Documented On 3 4:42PM ; [facility] Presence of ceiling fan(s) in residence 09/15/2022 Last Documented On 3 4:42PM ; [facility] The age of the carpet is 6 years old 07/2023 Last Documented On 3 4:42PM ; [facility] The age of the mattress is 1 year old Last Documented On 3 4:42PM ; [facility] The age of the residence is 6 years old 09/15/2022 Last Documented On 3 4:42PM ; [facility] The residence is surrounded by 3 Last Documented On 3 4:42PM ; [facility] Vacuuming done regularly daily 3 Last Documented On 3 4:42PM ; [facility] Windows are covered with blinds 09/15/19 23 Last Documented On 3 4:42PM ; [facility] Procedures and Surgical History Includes: Procedures from this encounter Procedures Code Diagnosis Performing Provider Service L ocation Service Date medication list reviewed Last Documented On 3 2:34PM ; [facility] taking medications as prescribed Last Documented On 3 2:34PM ; [facility] Summary provided electronica lly in CCDA format & reasonable certainty of receipt Last Documented On 3 2:34PM ; [facility] percutaneous tests with allergenic extracts was [id number] Last Documented On 3 3:06PM ; [facility] intradermal tests with allergenic extracts (imme diate) was [id number] Last Documented On 3 3:37PM ; [facility] Surgical History Last Updated No prior surgery 09/15/2022 Last Documented On 3 4:42PM ; [facility] No recent surgery 09/15/2022 Last Documented On 3 4:42PM ; [facility] Medical History Includes: Medical History addressed during this encounter Description Last Updated No active problems 09/15/2022 Last Documented On 3 4:42PM ; [facility] No otolaryngologic surgery (ENT) 023 Last Documented On 3 4:42PM ; [facility] No previous emergency room visit 023 Last Documented On 3 4:42PM ; [facility] No previous hospitalizations 09/15/2022 Last Documented On 3 4:42PM ; [facility] Past medical history was reported by the patient 09/15/2022 Last Documented On 3 4:42PM ; [facility] Family History Includes: Family History addressed during this encounter Description Last Updated mother eczema and allergies 09/15/2022 Last Documented On 3 4:42PM ; [facility] Family history of heart disease father h eart disease 09/15/2022 Last Documented On 3 4:42PM ; [facility] No family history of cancer 09/15/2022 Last Documented On 3 4:42PM ; [facility] No paternal history of family history of allergies 09/15/2022 Last Documented On 3 4:42PM ; [facility] No paternal history of family history of asthma 09/15/2022 Last Documented On 3 4:42PM ; [facility] Paternal history of father in [facility] h 09/15/2022 Last Documented On 3 4:42PM ; [facility] Paternal history of mother in [facility] h 09/15/2022 Last Documented On 3 4:42PM ; [facility] Father health status was reviewed 2022 Last Documented On 3 4:42PM ; [facility] Mother health status was reviewed 2022 Last Documented On 3 4:42PM ; [facility] Review of Systems Includes: Review of Systems from this encounter Encounter Background Information: ROS obtainable: The patient has provided me with the following subjective historic information. Systemic: Not feeling tired. No fever, no recent weight loss, and no recent weight gain. Head: No headache, no complains of recurrent sinus infections (recurrent), no sinus pain, and no sinus pressure. Eyes: No excessive blinking. No swelling around the eyes, no dryness of the eyes, and no itching of the eyes. No discharge from the eyes and no red eyes. Otolaryngeal: Ears do not feel clogged, no earache, and no recurrent infections of the ears. No popping noise in the ears, no tinnitus, and no nasal discharge. Watery nasal discharge. No postnasal drip (PND), no epistaxis, no frequent breathing through the mouth, and no snoring (excessive). Sneezing. No nasal itching and no nasal lump or mass (polyp). Nasal congestion. No hoarseness /laryngitis, no sore throat, no feeling of tightness in the throat, no swollen lips, and no swollen tongue. Cardiovascular: No chest pain or discomfort and no chest tightness or heavy pressure. Pulmonary: No shortness of breath, no dry cough, and no constant chronic cough. No nocturnal cough. Not coughing up sputum and no complaints of recurrent pneumonia. No hemoptysis and no wheezing. Gastrointestinal: No dysphagia and no heartburn /indigestion. No nausea, no vomiting, and no abdominal pain. Genitourinary: No increase in urinary frequency. Able to urinate (retention). No dysuria. Endocrine: No polydipsia. Hematologic: No hematologic symptoms and no tendency for easy bruising. Musculoskeletal: No back pain and no soft tissue swelling. Neurological: No dizziness, no vertigo, no convulsions /seizures, and no anosmia. No numbness. Psychological: No insomnia and no sleep apnea. Skin: Pruritus. No rash. Allergic and Immunologic: No complaint of allergic reaction from ingested food. Nursing Assessment: No other reporting data. Cardiovascular Disorder: No diagnosis of systemic hypertension. Endocrine Disorder: No diagnosis of diabetes mellitus. Rheumatologic Disorder: No diagnosis of arthritis. Orthopedic Disorder: No diagnosis of fracture. Hematologic Disorder: No diagnosis of anemia. Immunologic Disorder: No diagnosis of hay fever. Patient has had COVID-19. Past Medical: No recurrent bronchopulmonary infections (bronchitis/chest colds). No allergy to insects and no known drug allergies. No food intolerance. Standard Measurements: The patient was not overweight. Eyes: No infraorbital discoloration (shiners). Lymph Nodes: No adenopathy. Skin: No urticaria (hives) and no abscess was noted. Eczema. Mental Status Includes: Mental Status from this encounter Description Cognitive functioning was no rmal Oriented to time, place, and person No difficulty understanding spoken Lao Judgement was not impaired Functional Status Includes: Functional Status from this encounter No Functional Status Recorded Physical Exam Includes: Physical Exam from this encounter Allergies Includes: Active Allergies No Known Allergies Encounters Encounter Provider Location Date Check-In Time Check-Out Time Diagnosis New Patient Floresita sadler MD [place] [facility] 09/15/19 23 2:15PM 4:15PM Rhinitis Chronic,Rhini tis Vasomotor,Pos tnasal Drip Insurance Includes: Active Insurance Policies Plan Name Member ID Group # Subscriber Relationship Effect pako Dates 1 - [facility] [id number] Megan Luciano L Child 09/05/2017 - Unknown Clinical Notes Includes: Clinical Notes from this encounter No Clinical Notes Recorded
--- OUTSIDE RECORDS SUMMARY | 2024-11-15 08:32 | XMS_ITS ---
Care Plan - [facility] Created on: November 15, 2024 Reinaldo Ventura : 2005 Sex: Male Author Organization [facility] Address [address] [place] [address] Phone Care Team Providers Care Credit Counselor Name Role Phone Shandra Gibbs MD ([place]) Primary Care Provider [phone] Gwen OWENS, Floresita Sanford Unavailable [phone]
--- OUTSIDE RECORDS SUMMARY | 2024-11-15 08:32 | XMS_ITS | Continuity of Care Document ---
Author Name [facility] Organization [facility] Care Team Providers Care Apartment House Manager Name Role Phone [facility] Unavailable Unavailable Medications Combined list of outpatient medications from Department of Defense and Veterans Affairs facilities.Medications provided include 1) outpatient medications from the last 15 months, and 2) patient-reported medications. Medication Details Route Status Patient Instructions Prescription Expires Prescription Number Last Dispense Date Ordering Provider Order Date Order Qty Source OMEPRAZOLE (omeprazole ), 20 MG, CAPSULE TAYLOR MONTES, [place], 1000 ea. BOTTLE Active [id number] 3 2022 30 Pharmac y Data Transac tion Service Facilit y Social History Combined list of available smoking, tobacco, and other social history from Department of Defense and Veterans Affairs facilities. Social History Type Response Date Comment Sourc e This section is an empty social history section. [employer]
--- OUTSIDE RECORDS SUMMARY | 2024-11-15 08:32 | XMS_ITS ---
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 Phone Shandra Gibbs MD ([place]) Primary Care Provider [phone] Gwen OWENS, Floresita Christopher + [phone] Plan of Treatment Findings Encounter Date Continue current medication New Patient with Judy Hidalgo MD 09/15/2022 Last Documented On 3 4:42PM ; [facility] Discussion of therapy option s discussed with patient New Patient with Floresita Hidalgo MD 09/15/2022 Last Documented On 3 4:42PM ; [facility] Pending Tests Order Diagnosis Results Due Ordering P rovider STATUS - New Problem No additional workup planned Postnasal drip 09/15/22 Floresita Hidalgo MD Last Documented On 3 4:39PM ; [facility] STATUS - New Problem No additional workup planned Vasomotor rhinitis 09/15/22 Floresita Hidalgo MD Last Documented On 3 4:39PM ; [facility] STATUS - New Problem No additional workup planned Chronic rhinitis 09/15/22 Floresita Hidalgo MD Last Documented On 3 4:39PM ; [facility] Instructions to patient Instructions for patient Last Documented On 3 2:34PM ; [facility] Instructions for patient no evidence of allergies at present ~Recommended to do sinus rinse every day, mainly after work. ~Use Fluticasone nasal spray q PM ~Will consider further evaluation for possible sinus infections or immunodeficiency if symptoms persist or get worse Last Documented On 3 4:37PM ; [facility] Avoid allergens Last Documented On 3 2:34PM ; [facility] Education and Decision Aids were provided during visit for: Patient education using writ ten material Last Documented On 3 2:34PM ; [facility] Patient education using lect ure (Verbal) Last Documented On 3 2:34PM ; [facility] Patient education about medi cation Last Documented On 3 2:34PM ; [facility] Patient education about the proper use of medications Last Documented On 3 2:34PM ; [facility] Patient education about heidy rgies Last Documented On 3 2:34PM ; [facility] Inquiry and counseling about medication administration and compliance Last Documented On 3 4:37PM ; [facility] Education/counseling conduct ed by physician Last Documented On 3 2:34PM ; [facility] Patient education about skin care Last Documented On 3 2:34PM ; [facility] Assessments Includes: Assessments for all patient encounters Findings Encounter Date Chronic rhinitis New Patient with Floresita Pratt MD 09/15/2022 Last Documented On 3 4:42PM ; [facility] Postnasal drip New Patient with Floresita Rice MD 09/15/2022 Last Documented On 3 4:42PM ; [facility] Vasomotor rhinitis New Patient with Floresita Chambers MD 09/15/2022 Last Documented On 3 4:42PM ; [facility] Instructions Includes: Instructions for all patient encounters Instructions to patient Instructions for patient Last Documented On 3 2:34PM ; [facility] Instructions for patient no evidence of allergies at present ~Recommended to do sinus rinse every day, mainly after work. ~Use Fluticasone nasal spray q PM ~Will consider further evaluation for possible sinus infections or immunodeficiency if symptoms persist or get worse Last Documented On 3 4:37PM ; [facility] Avoid allergens Last Documented On 3 2:34PM ; [facility] Education and Decision Aids were provided during visit for: Patient education using writ ten material Last Documented On 3 2:34PM ; [facility] Patient education using lect ure (Verbal) Last Documented On 3 2:34PM ; [facility] Patient education about medi cation Last Documented On 3 2:34PM ; [facility] Patient education about the proper use of medications Last Documented On 3 2:34PM ; [facility] Patient education about heidy rgies Last Documented On 3 2:34PM ; [facility] Inquiry and counseling about medication administration and compliance Last Documented On 3 4:37PM ; [facility] Education/counseling conduct ed by physician Last Documented On 3 2:34PM ; [facility] Patient education about skin care Last Documented On 3 2:34PM ; [facility] Medical Equipment - Implanted Devices Includes: Current and historical Devices No Medical Equipment Recorded Medications Includes: Current and historical Medications Current Medications (continue as prescribed) Belkys Allergy 60 MG Oral Tablet 09/15/2022 Provide r: Diagnosis: Last Documented On 3 2:22PM By Cora Garza ; [facility] Fluticasone Propionate 50 MCG/ACT Nasal Suspension 09/15/2022 Provider: Floresita Rice MD Diagnosis: Chronic rhinitis once a day 2 sprays to each nostril Last Documented On 3 4:44PM By Floresita Hidalgo MD ; [facility] Medications Administered Includes: Administered Medications in patient's chart No Administered Medications Recorded Results Includes: Results from 11/16/2023 through 11/15/2024 No Results Recorded For Specified Dates History of Present Illness History of Present Illness not supported for this document type No History of Present Illness Recorded Social History Description Last Updated born and raised in [place], moved to [facility] in [address]609/15/2022 Last Documented On 3 4:42PM ; [facility] Education history 09/15/2022 Last Documented On 3 4:42PM ; [facility] Occupation [employer], 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 Last Documented On 3 4:42PM ; [facility] Work history 09/15/2022 Last Documented On 3 4:42PM ; [facility] No difficulty understanding spoken Engli sh 09/15/2022 Last Documented On 3 4:42PM ; [facility] No secondhand cigarette smoke exposure 0 09/15/2022 Last Documented On 3 4:42PM ; [facility] Seeing a family doctor regularly 023 Last Documented On 3 4:42PM ; [facility] Smoking status : Never smoker 09/15/2022 Last Documented On 3 4:42PM ; [facility] Air-conditioning filters are changed mon thly 09/15/2022 Last Documented On 3 4:42PM ; [facility] Carpeting in the following rooms upstair s 09/15/2022 Last Documented On 3 4:42PM ; [facility] Contact with dogs 09/15/2022 Last Documented On 3 4:42PM ; [facility] Contact with pets or other animals 09/15 Last Documented On 3 4:42PM ; [facility] Contact with rabbits 09/15/2022 Last Documented On 3 4:42PM ; [facility] Does not sleep with pets 09/15/2022 Last Documented On 3 4:42PM ; [facility] Housing has central cooling 09/15/2022 Last Documented On 3 4:42PM ; [facility] Housing has windows closed 09/15/2022 Last Documented On 3 4:42PM ; [facility] [place] Lives in private residence 09/15/2022 Last Documented On 3 4:42PM ; [facility] Mattress is not encased 09/15/2022 Last Documented On 3 4:42PM ; [facility] No exposure to environmental tobacco smo ke 09/15/2022 Last Documented On 3 4:42PM ; [facility] No exposure to molds 09/15/2022 Last Documented On 3 4:42PM ; [facility] Patient does not sleep with stuffed anim als 09/15/2022 Last Documented On 3 4:42PM ; [facility] Patient is not exposed to clutter that c ollects dust in the residence 09/15/2022 Last Documented On 3 4:42PM ; [facility] Pets in household 09/15/2022 Last Documented On 3 4:42PM ; [facility] Pillows are not encased 09/15/2022 Last Documented On 3 4:42PM ; [facility] Presence of carpet in residence 09/15/19 23 Last Documented On 3 4:42PM ; [facility] Presence of ceiling fan(s) in residence 09/15/2022 Last Documented On 3 4:42PM ; [facility] The age of the carpet is 6 years old 07/2023 Last Documented On 3 4:42PM ; [facility] The age of the mattress is 1 year old Last Documented On 3 4:42PM ; [facility] The age of the residence is 6 years old 09/15/2022 Last Documented On 3 4:42PM ; [facility] The residence is surrounded by 3 Last Documented On 3 4:42PM ; [facility] Vacuuming done regularly daily 3 Last Documented On 3 4:42PM ; [facility] [place] Windows are covered with blinds 09/15/19 23 Last Documented On 3 4:42PM ; [facility] [place] Procedures and Surgical History Surgical History Last Updated No prior surgery 09/15/2022 Last Documented On 3 4:42PM ; [facility] [place] No recent surgery 09/15/2022 Last Documented On 3 4:42PM ; [facility] [place] Medical History Includes: Medical History in patient's chart Description Last Updated No active problems 09/15/2022 Last Documented On 3 4:42PM ; [facility] [place] No otolaryngologic surgery (ENT) 023 Last Documented On 3 4:42PM ; [facility] No previous emergency room visit 023 Last Documented On 3 4:42PM ; [facility] [place] No previous hospitalizations 09/15/2022 Last Documented On 3 4:42PM ; [facility] Past medical history was reported by the patient 09/15/2022 Last Documented On 3 4:42PM ; [facility] [place] Family History Includes: Family History in patient's chart Description Last Updated mother eczema and allergies 09/15/2022 Last Documented On 3 4:42PM ; [facility] Family history of heart disease father h eart disease 09/15/2022 Last Documented On 3 4:42PM ; [facility] No family history of cancer 09/15/2022 Last Documented On 3 4:42PM ; [facility] [place] No paternal history of family history of allergies 09/15/2022 Last Documented On 3 4:42PM ; [facility] No paternal history of family history of asthma 09/15/2022 Last Documented On 3 4:42PM ; [facility] Paternal history of father in [facility] h 09/15/2022 Last Documented On 3 4:42PM ; [facility] Paternal history of mother in [facility] h 09/15/2022 Last Documented On 3 4:42PM ; [facility] Father health status was reviewed 2022 Last Documented On 3 4:42PM ; [facility] Mother health status was reviewed 2022 Last Documented On 3 4:42PM ; [facility] Review of Systems Review of Systems not supported for this document type No Review of Systems Recorded Mental Status Description Cognitive functioning was no rmal Oriented to time, place, and person No difficulty understanding spoken Italian Judgement was not impaired Functional Status No Functional Status Recorded Physical Exam Physical Exam not supported for this document type No Physical Exam Recorded Allergies Includes: Active, inactive, and resolved Allergies No Known Allergies Insurance Includes: Active Insurance Policies Plan Name Member ID Group # Subscriber Relationship Effect pako Dates 1 - [facility] [id number] Megan Luciano Child 09/05/2017 - Unknown Clinical Notes Includes: Signed Clinical Notes starting from 01/22/2023 No Clinical Notes Recorded
== END 2024-11-15 09:18 | disposition home or self-care (01) ==
PROVIDERS: PCP Family Medicine; Visit Provider Physician Assistant Medical
DX: J31.0 Chronic rhinitis (principal); J34.2 Deviated nasal septum; R03.0 Elevated blood-pressure reading, without diagnosis of hypertension; J02.9 Acute pharyngitis, unspecified

== ENCOUNTER → 2024-11-15 08:11 | Outpatient (BNVA) | payer OTHER, SELFPAY | PROVIDERS: PCP Family Medicine | DX: J31.0 Chronic rhinitis (principal); J34.2 Deviated nasal septum; R03.0 Elevated blood-pressure reading, without diagnosis of hypertension; J02.9 Acute pharyngitis, unspecified | CPT/HCPCS: 87880; 99212 ==

== ENCOUNTER 2025-03-07 11:59 | Outpatient (AMB) | payer OTHER, SELFPAY ==
[2025-03-07 12:01] VITALS: BP 100/70; PULSE 70; TEMP 36.8; O2SAT 97; BMI 28.6
--- NOTE | 2025-03-07 12:01 | MHC.OFFWIV ---
Intake Vital Signs 03/07/25 12:01 Height 5 ft 8 in Weight 188 lb 2 oz BMI 28.6 BP 100/70 Blood Pressure Location Lt brachial Position Sitting Pulse 70 Pulse Source Pulse Oximeter Temp 98.2 F Temp Source Oral Pulse Oximetry (%) 97 Oxygen Delivery Method Room Air Intake Visit Reasons: EP over sleeping, weakness Patient Tobacco Use Status: Never used Tobacco Mixing And Dispensing Supervisor Required: No Allergies No Known Allergies Allergy (Verified 03/07/25 12:07) HPI HPI Comments History of Present Illness Details 19 y/o Male patient who presents to the walk in clinic with his mother with concern for Excessive Daytime Sleepiness. Pt reports staying up late at night everyday - playing video games, on the phone and sometimes doing his home-work. Patient lives with mother, who works overnight shifts. Pt reports that he uses that time @ night to be alone and free without his mother around Nagging . When she is away at work, leaves me to be free to do my own stuff . Reports being restricted when mom is home and around. Denies the use of marijuana, Heroine, Cocaine, Alcohol etc. Reports having difficulties staying up during the day- instead he is always sleeping. Mother worried and asking for testing and Blood work. [facility] Medical History (Updated 03/07/25 @ 12:47 by Daina Farias NP) Daytime somnolence Sore throat Elevated blood pressure reading Chronic rhinitis Surgical History No pertinent past surgical history Family History Father No problems noted. Mother No problems noted. Social History Household Members: Family Housing: House Patient Tobacco Use Status: Never used Tobacco e-Cigarette/Vaping Use: Never Used service: No Current occupational status: student Current occupation: [employer], [employer] Current occupational exposures/hazards: No Cognitive needs: No Hearing needs: No Vision needs: No Review of Systems Const All systems reviewed & are unremarkable except as noted in HPI and below Physical Exam Vital Signs: Last Vital Signs Temp 98.2 F 03/07/25 12:01 Pulse 70 03/07/25 12:01 BP 100/70 07/03/25 12:01 Pulse Ox 97 03/07/25 12:01 Oxygen Delivery Method Room Air 03/07/25 12:01 BMI result Body Mass Index 28.6 Const Other: Patient unable to stay awake during the visit, unable to keep his eyes opened General: no acute distress and lethargic Nutritional Appearance: well nourished Orientation/consciousness: lethargic Neuro General: gait normal and moves all extremities Psych Speech and movement: Slowed movement present (Neuro) Attitude: cooperative Assessment & Plan Assessment & Plan (1) Daytime somnolence: Code(s): R40.0 - Somnolence Plan: Pt will need to f/u with PCP for possible Sleep study. Advised Pt to get atleast 8 hours of sleep everynight, and stop Playing video Games late at night. Pt does have h/o Depression and currently on meidcations. (2) Depression: Code(s): F32.A - Depression, unspecified Plan: Refilled Citalopram. Medications: Changed From citalopram 20 mg PO DAILY 90 days 90 tabs 1RF F32.A - Depression, unspecified To citalopram 20 mg PO DAILY 60 tabs 1RF 60 days F32.A - Depression, unspecified Coding Level of Care Code Est Pt Level 4 (26502) Diagnoses Daytime somnolence R40.0 Depression F32.A Time Spent (min) 20
--- OUTSIDE RECORDS SUMMARY | 2025-03-07 12:31 | XMS_ITS | Patient Health Record ---
Author Organization [facility] Address [address] [address] Care Team Providers Care Technical Maintenance Technician Name Role Phone Sai OWENS, Shandra Primary Care Provider Darell Kwong MD, Alirio Unavailable [phone] Reason For Referral No Information Medications Medication SIG (Take, Route, Frequency, Duration) Notes Start Date End Date Status Lactaid 3000 UNIT 1 tablet with first bite of dairy - containing food Orally Three times a day for 30 days 10/26/2022 Active Fluticasone Propionate 50 MCG/ACT Nasal for 90 Days Active Azelastine-Fluticasone 137-50 MCG/ACT Nasal for 15 Days Active Tretinoin 0.025 % 1 application in the evening to face Externally Once a day for 20 days Active Social History Tobacco Use: Social History Observation Description Date Details (start date - stop date) Never Smoker NA - NA Tobacco Use/Smoking (Archived) Question Answer Notes Are you a? nonsmoker Additional Findings: Tobacco Non-User Current no n-smoker Alcohol Screen (Audit-C) Question Answer Notes Did you have a drink containing alcohol in the p ast year? No Points 0 Interpretation Negative Problems Problem Type SNOMED Code ICD Code Onset Dates Problem Status W/U Status Risk Notes Problem [id number] Lactose intolerance (E73.9) Active confirmed Plan Of Treatment No Information Insurance Providers Payer Name Payer Address Payer Phone Subscriber Number Group Number Insured Name Patient Relationship to Insured Coverage Start Date Coverage End Date [facility] [address] [place], [place] [id number] Reinaldo Gordillo Self - patient is the insured
== END 2025-03-07 12:47 | disposition home or self-care (01) ==
PROVIDERS: PCP Family Medicine; Visit Provider Nurse Practitioner Family
DX: R40.0 Somnolence (principal); F32.A Depression, unspecified

== ENCOUNTER → 2025-03-07 11:59 | Outpatient (BNVA) | payer OTHER, SELFPAY | PROVIDERS: PCP Family Medicine; Visit Provider Nurse Practitioner Family | DX: R40.0 Somnolence (principal); F32.A Depression, unspecified | CPT/HCPCS: 99212 ==

== ENCOUNTER 2025-07-17 14:45 | Outpatient (AMB) | payer OTHER, SELFPAY ==
--- NOTE | 2025-07-17 14:49 | A.OFFPC_ITS ---
Vital Signs 07/17/25 14:54 Height 5 ft 8 in Weight 191 lb 6 oz BMI 29.1 BP 108/60 Blood Pressure Location Lt brachial Position Sitting Respiration 14 Pulse 93 Pulse Source Pulse Oximeter Temp 98.4 F Temp Source Oral Pulse Oximetry (%) 97 Oxygen Delivery Method Room Air Intake Visit Reasons: BP check/med check Intake Note: patient is scheduled to follow up on b/p and medication follow up Veterinary Radiologist Required: No Allergies No Known Allergies Allergy (Verified 07/17/25 14:52) Medication List - Last Reconciled 07/17/25 by Keith Monaco MD citalopram 20 mg PO DAILY 60 days Tobacco use date assessed: 08/26/23 Dental Screening Dental Screen Date: 08/26/23 HPI BP check/med check HPI Details 19 y/o male presents to f/u blood pressu re. Blood pressure today 108/60, 93p. He is on citalopram 20mg daily. Pt notes he feels mood has improved. [facility] Medical History (Updated 07/17/25 @ 15:16 by Sandeep Domínguez) Daytime somnolence Sore throat Chronic rhinitis Surgical History No pertinent past surgical history Family History Father No problems noted. Mother No problems noted. Social History Household Members: Family Housing: House Patient Tobacco Use Status: Never used Tobacco e-Cigarette/Vaping Use: Never Used service: No Current occupational status: student Current occupation: [employer] Current occupational exposures/hazards: No Cognitive needs: No Hearing needs: No Vision needs: No Questionnaire PHQ-9 Over the last 2 weeks, how often have you been bothered by any of the following problems? 1. Little interest or pleasure in doing things: several days 2. Feeling down, depressed, or hopeless: several days 3. Trouble falling or staying asleep, or sleeping too much: several days 4. Feeling tired or having little energy: several days 5. Poor appetite or overeating: several days 6. Feeling bad about yourself - or that you are a failure or have let yourself or your family down: several days 7. Trouble concentrating on things, such as reading the newspaper or watching television: not at all 8. Moving or speaking so slowly that other people could have noticed. Or the opposite - being so fidgety or restless that you have been moving around a lot more than usual: several days 9. Thoughts that you would be better off or of hurting yourself in some way: not at all Total score: 7 Depression Screening Interpretation: Positive Depression Screening Done: Yes 10147 - PHQ-9 Billing: Yes Source: Developed by Drs. Ruben Padron, Jackie Urena, Aniket Kennedy and colleagues, with an educational ebony from [employer] Thrive Questionnaire Date Thrive assessed: 05/17/25 I am a: Patient What is your living situation today?: I have a steady place to live Within the past 12 months, did the food you bought not last and you didn't have the money to get more?: Sometimes True Within the past 12 months, did you worry whether your food would run out before you got money to buy more?: Sometimes True Do you have trouble paying for medicines?: No Do you have trouble getting transportation to medical appointments?: No Do you have trouble paying your heating and electricity bill?: I choose not to answer this question Do you have trouble taking care of your child, family member or friend?: No Do you have trouble with day-to-day activities such as bathing, preparing meals, shopping, managing finances, etc.?: No Are you currently unemployed and looking for a job?: No Are you interested in more education?: No Please select the resources that you would like help with: None Currently or been in a relationship where the following occur: No concerns reported THRIVE Score: 2 JEFFERY-7 AMB Questionnaire JEFFERY-7 Date JEFFERY - 7 assessed: 07/17/25 Feeling nervous, anxious, or on edge: 1 = Several days Not being able to stop or control worryin = Not at all Worrying too much about different things: 1 = Several days Trouble relaxin = Not at all Being so restless that it is hard to sit still: 1 = Several days Becoming easily annoyed or irritable: 1 = Several days Feeling afraid as if something awful might happen: 0 = Not at all Total JEFFERY-7 score (0-4 normal; 5-9 mild; 10-14 moderate; 15-21 severe): 4 Source: Developed by Drs. Ruben Padron, Jackie Urena, Aniket Kennedy and colleagues, with an educational ebony from [employer] JEFFERY-7 Assessment Billing JEFFERY-7 Assessment Tool: JEFFERY-7 Assessment 93823 Review of Systems Const Denies chills, Denies fatigue, Denies fever(s), Denies headache(s) and Denies weakness ENT Denies dizziness and Denies headache(s) Card Denies dyspnea Resp Denies cough, Denies dyspnea, Denies wheezing and Denies other (shortness of breath) Musc Denies numbness and Denies tingling Neuro Denies dizziness, Denies headache(s), Denies numbness, Denies tingling and Denies weakness Psych Denies anxiety and Denies depression Endo Denies fatigue Aller/Immun Denies wheezing Physical exam (Primary Care) Vital Signs: Last Vital Signs Temp 98.4 F 07/17/25 14:54 Pulse 93 07/17/25 14:54 Resp 14 07/17/25 14:54 BP 108/60 07/17/25 14:54 Pulse Ox 97 07/17/25 14:54 Oxygen Delivery Method Room Air 07/17/25 14:54 BMI result Body Mass Index 29.1 Tobacco/Smoking Status: Tobacco use Status Tobacco use date assessed 08/26/23 07/17/25 14:50 Patient Tobacco Use Status Never used Tobacco 07/17/25 14:50 e-Cigarette/Vaping Use Never Used 07/17/25 14:50 PHQ-9: PHQ-9 Score PHQ-9: Total score 7 07/17/25 15:14 Depression Screening Interpretation: Positive Thrive Assessment: Date of Thrive Assessment Date Thrive assessed 05/17/25 07/17/25 14:50 Currently or been in a relationship where the following occur: No concerns reported Const General: well developed; No acute distress Nutritional Appearance: well nourished Orientation/consciousness: patient oriented x3 HENMT Head: Yes normocephalic and Yes atraumatic Eyes General: appearance normal, both eyes and all related structures Pupils: Equal, round and reactive pupils present EOM: EOMs intact bilaterally Resp Effort & Inspection: normal respiratory effort Auscultation: clear to auscultation bilaterally Cardio Rate: regular rate Rhythm: regular rhythm Heart sounds: S1 normal heart sound present, S2 normal heart sound present, no gallops, no murmurs and no rubs Neuro General: patient oriented x3 and gait normal Cranial nerves: Yes Equal, round and reactive pupils present Psych Affect: normal affect Coding Level of Care Code Est Pt Level 3 (70189) Diagnoses Depression F32.A Additional Codes JEFFERY-7 Assessment Billing - JEFFERY-7 Assessment Tool: JEFFERY-7 Assessment 02695 ([id number]) PHQ-9 - 60185 - PHQ-9 Billing: Yes ([id number]) Assessment & Plan Assessment & Plan (1) Depression: Code(s): F32.A - Depression, unspecified Category: Medical Plan: Still has some mild ongoing depression and plans to restart citalopram. Sending a script for this. Patient notes that it was helpful when he was using it We can follow-up at his next visit Orders: Orders Comprehensive [place]. Panel Fast Today Z00.00 - Encounter for general adult medical examination without abnormal findings Complete Blood Count Auto Diff Today Z00.00 - Encounter for general adult medical examination without abnormal findings Lipid Panel Today Z00.00 - Encounter for general adult medical examination without abnormal findings TSH reflex Free T4 Today Z00.00 - Encounter for general adult medical examination without abnormal findings UA CC w/rflx Micro + Cult Today Z00.00 - Encounter for general adult medical examination without abnormal findings Microalbumin, Random (w Creat) Today I10 - Essential (primary) hypertension Medications: Changed From citalopram 20 mg PO DAILY 60 days 60 tabs 1RF F32.A - Depression, unspecified To citalopram 20 mg PO DAILY 90 tabs 1RF 90 days F32.A - Depression, unspecified
[2025-07-17 14:54] VITALS: BP 108/60; PULSE 93; RESP 14; TEMP 36.9; O2SAT 97; BMI 29.1
--- OUTSIDE RECORDS SUMMARY | 2025-07-17 18:12 | XMS_ITS | Patient Health Record ---
Author Organization [facility] Address [address] [address] Care Team Providers Care Pooling Operator Name Role Phone Sai OWENS, Shandra Primary Care Provider Darell Kwong MD, Alirio Unavailable [phone] Reason For Referral No Information Medications Medication SIG (Take, Route, Frequency, Duration) Notes Start Date End Date Status Lactaid 3000 UNIT Tablet 1 tablet with f irst bite of dairy - containing food Orally Three times a day; Duration: 30 days 10/26/2022 Active Fluticasone Propionate 50 MCG/ACT Suspension Nasal; Duration: 90 Days Active Azelastine-Fluticasone 137-50 MCG/ACT Suspension Nasal; Duration: 15 Days Active Tretinoin 0.025 % Cream 1 application in the evening to face Externally Once a day; Duration: 20 days Active Social History Tobacco Use: Social History Observation Description Date Details (start date - stop date) Never Smoker NA - NA Social History Drugs/Alcohol(Archived) Social Info Question Answer Notes Alcohol Screen (Audit-C) Did you have a drink containing alcohol in the past year? No Points 0 Interpretation Negative Drugs Have you used drugs other than those for medical reasons in the past 12 months? No Tobacco Use: Social Info Question Answer Notes Tobacco Use/Smoking (Archived) Are you a? nonsmoker Additional Findings: Tobacco Non-User Current no n-smoker Problems Problem Type SNOMED Code ICD Code Onset Dates Problem Status W/U Status Risk Notes Problem Intolerance to lactose (finding) (248680294) Lactose intolerance (E73.9) Active confirmed Plan Of Treatment No Information Insurance Providers Payer Name Payer Address Payer Phone Subscriber Number Group Number Insured Name Patient Relationship to Insured Coverage Start Date Coverage End Date [facility] [address] [place], [place] [id number] Reinaldo Gordillo Self - patient is the insured
== END 2025-07-17 15:15 | disposition home or self-care (01) ==
LOC: HO.HMCFM 14:45
PROVIDERS: PCP Family Medicine; Visit Provider Family Medicine
DX: F32.A Depression, unspecified (principal)

== ENCOUNTER → 2025-07-17 14:45 | Outpatient (BNVA) | payer OTHER, SELFPAY | PROVIDERS: PCP Family Medicine; Visit Provider Family Medicine | DX: I10 Essential (primary) hypertension (principal); F32.A Depression, unspecified | CPT/HCPCS: 96127; 99212 ==

== ENCOUNTER 2025-09-02 10:35 | Outpatient (REF) | payer OTHER, SELFPAY ==
--- OUTSIDE RECORDS SUMMARY | 2025-09-02 12:04 | XMS_ITS | Patient Health Record ---
Author Organization [facility] Address [address] [address] Care Team Providers Care Aerographer Name Role Phone Sai OWENS, Shandra Primary Care Provider Darell Kwong MD, Alirio Unavailable [phone] Reason For Referral No Information Medications Medication [...] Risk Notes Problem Intolerance to lactose (finding) (034063117) Lactose intolerance (E73.9) Active confirmed Plan Of Treatment No Information Insurance Providers Payer Name Payer Address Payer Phone Subscriber Number Group Number Insured Name Patient Relationship to Insured Coverage Start Date Coverage End Date [facility] [address] [place], [place] [id number] [phone] [id number] Reinaldo Gordillo Self - patient is the insured
[2025-09-02 14:51] LABS: MANUAL DIFF FLAG NO
[2025-09-02 14:57] LABS: Hematocrit 46.3 % (42.0-52.0); Hemoglobin 15.3 g/dl (14.0-18.0); Imm Gran Abs Auto 0.02 X10*3/uL (0.00-0.03); Imm Gran Pct Auto 0.3 % (0.0-0.4); Lymphocytes Absolute Auto 2.2 X10*3/uL (1.2-4.9); Mean Corpuscular HGB Conc 33.0 g/dl (31.0-36.0); Mean Corpuscular Hemoglobin 30.1 pg (27.0-33.0); Mean Corpuscular Volume 91.1 fL (80.0-98.0); NRBC Abs Auto 0.000 X10*3/uL (0.0-0.012); NRBC Pct Auto 0.0 /100WBC (0.0-0.2); Platelet Count 305 X10*3/uL (160-400); Red Blood Count 5.08 X10*6/uL (4.60-5.80); White Blood Count 7.1 X10*3/uL (4.8-10.8)
[2025-09-02 15:27] LABS: Appearance Urine Clear; Glucose Urine UA Negative (Negative); PH 7.0 (5.0-9.0); Specific Gravity - Urine <= 1.005 (1.005-1.025)
[2025-09-02 15:38] LABS: Alanine Aminotransferase 38 U/L (0-40); Albumin Level 4.6 g/dL (3.5-5.0); Alkaline Phosphatase 81 U/L (39-117); Anion Gap 11 (12-20); Aspartate Amino Transferase 36 U/L (5-37); Blood Urea Nitrogen 12 mg/dL (9-16); Calcium 9.5 mg/dL (8.4-10.2); Carbon Dioxide 27 mmol/L (22-29); Chloride 104 mmol/L (96-108); Cholesterol 136 mg/dL (<200); Estimated Glomerular Filt Rate > 60; HDL Cholesterol 50 mg/dL (>40); Potassium 4.9 mmol/L (3.3-5.1); Sodium 137 mmol/L (135-145); Total Protein 7.0 g/dL (6.5-8.0); Triglycerides 84 mg/dL (<150)
== END 2025-09-02 10:36 | disposition home or self-care (01) ==
LOC: HO.WFDLDS 10:35
PROVIDERS: Visit Provider Family Medicine
DX: Z00.00 Encounter for general adult medical examination without abnormal findings (principal); I10 Essential (primary) hypertension
CPT/HCPCS: 36415; 80053; 80061; 81003; 82043; 82570; 84443; 85025